=== PATIENT | female | born 1965 | race Caucasian/White ===

== ENCOUNTER → 2020-12-23 | Outpatient (CLI) | payer BC ==
[~2020-12-23] MED LIST: IBU800 MG PO
== END ==
LOC: KOH-I 10:30
DX: F17.210 Nicotine dependence, cigarettes, uncomplicated (principal); R10.10 Upper abdominal pain, unspecified; R11.0 Nausea; M54.5 Low back pain; M25.78 Osteophyte, vertebrae; M54.6 Pain in thoracic spine; M48.02 Spinal stenosis, cervical region; M43.8X4 Other specified deforming dorsopathies, thoracic region; M43.8X6 Other specified deforming dorsopathies, lumbar region; M47.817 Spondylosis without myelopathy or radiculopathy, lumbosacral region; R91.1 Solitary pulmonary nodule
CPT/HCPCS: 71271; 72070; 72100

== ENCOUNTER → 2021-01-29 | Outpatient (CLI) | payer BC | LOC: KOH-I 12:53 | DX: M79.606 Pain in leg, unspecified (principal); G62.9 Polyneuropathy, unspecified; M47.816 Spondylosis without myelopathy or radiculopathy, lumbar region; M51.34 Other intervertebral disc degeneration, thoracic region; M51.24 Other intervertebral disc displacement, thoracic region | CPT/HCPCS: 72146; 72148; 93922; 93925 ==

== ENCOUNTER → 2021-05-25 | Outpatient (CLI) | payer BC | LOC: KOH-I 04-13 10:00 | DX: R91.1 Solitary pulmonary nodule (principal); R91.8 Other nonspecific abnormal finding of lung field | CPT/HCPCS: 71250 ==